=== PATIENT | female | born 1995 | race Two or more races ===

== ENCOUNTER 2021-06-07 07:30 | Day surgery (SDC) | payer OTHER ==
[2021-06-07] MEDS ORDERED: CILOXAN5 ML OTIC (13:32)
[2021-06-07] MEDS ORDERED: AMOX-CLAV 875-1 EACH PO (13:32)
[2021-06-07] MEDS ORDERED: MOTION SICKNESS25 M5 PO (13:32)
== END 2021-06-07 17:00 | disposition home or self-care (01) ==
LOC: CIR.AMB 07:30
PROVIDERS: ATTEND Otolaryngology Otology & Neurotology
DX: H71.22 Cholesteatoma of mastoid, left ear (principal); H70.12 Chronic mastoiditis, left ear; H90.12 Conductive hearing loss, unilateral, left ear, with unrestricted hearing on the contralateral side; H95.192 Other disorders following mastoidectomy, left ear; H72.92 Unspecified perforation of tympanic membrane, left ear; Z20.822 Contact with and (suspected) exposure to COVID-19

== ENCOUNTER 2024-11-11 05:06 | Day surgery (SDC) | payer OTHER ==
[2024-11-07 12:46] VITALS: BP 112/79
[2024-11-07 12:55] LABS: PH,URINE 6.5 (5.0-8.0); URINE APPEARANCE Clear; URINE BILIRRUBIN Negative (NEGATIVE); URINE BLOOD Small; URINE COLOR Yellow; URINE GLUCOSE Negative (NEGATIVE); URINE KETONE Trace (NEGATIVE); URINE LEUKOCYTE Negative; URINE NITRATE Negative; URINE PROTEIN Negative (NEGATIVE)
[2024-11-07 12:56] LABS: HEMATOCRIT 37.9 % (36.0-45.00); HEMOGLOBIN 12.7 g/dL (12.0-15.00); MEAN CELL VOLUME 89.2 fL (80.00-100.00); MEAN CORPUSCULAR HEMOGLOBIN 29.8 pg (27.00-32.0); MEAN CORPUSCULAR HGB CONC 33.5 g/dl (32.0-36.0); PLATELET COUNT 338 K/uL (150-450); RED BLOOD COUNT 4.25 M/uL (4.00-6.00); RED CELL DISTRIBUTION WIDTH 13.5 % (11.5-14.5)
[2024-11-07 12:57] LABS: URINE BACTERIA 3724.1 uL (0.0-1933); URINE EPITHELIAL CELLS 86.2 uL (0.0-38.8); URINE RBC 21.9 uL (0.0-20.8); URINE WBC 6.3 uL (0.0-23.2)
[2024-11-07 13:39] LABS: URINE CAST 0.14 uL (0.0-1.40)
[2024-11-07 13:41] LABS: ALBUMIN 4.1 gm/dL (3.4-5.0); CALCIUM 9.3 mg/dL (8.5-10.1); CREATININE SERUM 0.58 mg/dL (0.55-1.02); GFR 121.25; PHOSPHOROUS 3.8 mg/dL (2.5-4.9); POTASSIUM 4.92 mEq/L (3.5-5.1)
[2024-11-07 13:47] LABS: INR 1.05; PARTIAL THROMBOPLASTIN TIME 28.4 SECONDS (22.0-34.0); PROTHROMBIN TIME 11.4 SECONDS (9.0-11.5)
[~2024-11-11] VITALS: Ht 172.7 cm; Wt 74.8 kg
[~2024-11-11 05:06] MED LIST: AMOX-CLAV 875-1 EACH PO; CILOXAN5 ML OTIC; MOTION SICKNESS25 M5 PO
[2024-11-11] MEDS ORDERED: POVIDONE-IODINE 118 ML BOTT TOP ONE (07:27)
[2024-11-11] MEDS ORDERED: LIDOCAINE HCL 1%/EPINEPHRINE 20ML VIAL IJ ONE (07:27)
[2024-11-11] MEDS ORDERED: CEFAZOLIN SODIUM 1,000 MG VIAL ONE ×2 (07:31→07:34)
[2024-11-11] MEDS ORDERED: EPINEPHRINE HCL/PF 1 MG/ML AMPUL ONE (08:15)
[2024-11-11] MEDS ORDERED: CIPROFLOXACIN2.5 ML OTIC (10:16)
[2024-11-11] MEDS ORDERED: LEVOFLOXACIN500 MG PO (10:17)
[2024-11-11] MEDS ORDERED: MORPHINE SULFATE 4 MG/ML VIAL IV ONE (10:45)
== END 2024-11-11 12:10 | disposition home or self-care (01) ==
LOC: CIR.AMB 05:06
PROVIDERS: ATTEND Otolaryngology Otology & Neurotology
DX: H71.22 Cholesteatoma of mastoid, left ear (principal); H70.12 Chronic mastoiditis, left ear; H61.302 Acquired stenosis of left external ear canal, unspecified